=== PATIENT | female | born 1965 | race Caucasian/White ===

== ENCOUNTER 2022-12-30 11:33 | Emergency (ER) | payer MEDICAID, OTHER ==
[~2022-12-30] VITALS: Ht 167.6 cm; Wt 86.2 kg
[2022-12-30 11:46] VITALS: BP_SYST 122; PULSE 87; RESP 18; TEMP 98.3; O2SAT 96
[2022-12-30] MEDS ORDERED: LIDOCAINE 1%, 20 ML MDV 20 ML ONE (14:07)
[2022-12-30] MEDS ORDERED: LIDOCAINE 1% 10 MG/ML, 20 ML MDV INJ ONE (14:15)
[2022-12-30] MEDS ORDERED: TRAM50TA2 PO (14:18)
== END 2022-12-30 14:30 | disposition home or self-care (01) ==
LOC: SED 11:33
DX: M71.22 Synovial cyst of popliteal space [Baker], left knee (principal); M25.562 Pain in left knee; Z79.899 Other long term (current) drug therapy
CPT/HCPCS: 99284; 20610; 73564; 76882; J2001